=== PATIENT | female | born 1985 | race Caucasian/White ===

== ENCOUNTER 2020-06-30 09:22 | Emergency (ER) | payer SELFPAY ==
--- NOTE | 2020-06-30 09:25 | ED.GENADULT ---
HPI - General Adult General Chief complaint: Skin/Abscess/Foreign Body Stated complaint: Left side facial swelling Time Seen by Provider: 06/30/20 09:36 Source: patient and RN notes reviewed Mode of arrival: ambulatory Limitations: no limitations History of Present Illness HPI narrative: 34-year-old female presents with concern for facial redness, swelling. Reports 1 week ago she noticed a pimple near her left nostril, reports that it drained a small amount of pus, got smaller. Reports it started getting larger again last night, she woke up today with redness, hardness, facial swelling, tenderness. She denies fever, general malaise. She denies vision changes, headache, foul taste or smell. MD complaint: Facial swelling Related Data Allergies Allergy/AdvReac Type Severity Reaction Status Date / Time No Known Allergies Allergy Verified 06/30/20 09:35 Review of Systems Review of Systems: Narrative: CONSTITUTIONAL: Denies malaise, chills, sweats, or fever. EYES: Denies visual changes, redness, or discharge. ENT: Denies rhinorrhea, congestion, sinus pain, otalgia or sore throat. CARDIOVASCULAR: Denies chest pain, palpitations, or edema. RESPIRATORY: Denies cough or dyspnea. GASTROINTESTINAL: Denies abdominal pain, nausea, vomiting SKIN: Reports facial redness, swelling, pimple MUSCULOSKELETAL: Denies myalgia. NEUROLOGIC: Denies numbness, weakness, or headache. All systems reviewed & are unremarkable except as noted in HPI and below PMFSH Comments At time of signature, agree with nursing past medical, surgical, social and family history. There is no relevant family history pertinent to the presenting complaint Exam Narrative: Exam Narrative: GENERAL: Well-appearing, well-nourished, and in no acute distress. HEAD: Normocephalic, atraumatic. EYES: PERRLA, conjunctivae clear, and EOMI. ENT: Nares clear, turbinates pink, no rhinorrhea or epistaxis. Mucous membranes moist. NECK: Supple. No lymphadenopathy. No jugular venous distension. Carotids were easily palpable bilaterally. CHEST: No respiratory distress. No bony deformities, no asymmetry. Speaks in full sentences. HEART: Regular rate and rhythm. SKIN: Warm, dry. No papule with yellow crusted scab noted to the left side of the nostril surrounded by 3 cm of erythema, induration, left cheek edema and mild erythema. NEURO: Alert and oriented x3. No focal deficits. PSYCH: Normal mood and affect Course Course Emergency Course: Discussed with patient limited diagnostic capability at [facility], discussed facial cellulitis and possible need for IV antibiotics, discussed transfer to the emergency room. Patient chooses to not be transferred to the emergency room at this time, understands risks. Patient understands reasons to go to the emergency room symptoms worsen or do not improve. Patient is aware of diagnosis, understands and agrees to treatment plan. Anticipatory guidance given. Patient agrees to follow-up as directed and is aware of reasons to seek care at the emergency department. Portions of this record may have been created with voice recognition software Vital Signs Vital signs: Vital Signs Temperature 98.7 F 06/30/20 09:28 Pulse Rate 94 06/30/20 09:28 Respiratory Rate 16 06/30/20 09:28 Blood Pressure 114/71 06/30/20 09:28 Pulse Oximetry 98 06/30/20 09:28 Temperature 98.7 F 06/30/20 09:28 Pulse Rate 94 06/30/20 09:28 Respiratory Rate 16 06/30/20 09:28 Blood Pressure 114/71 06/30/20 09:28 Pulse Oximetry 98 06/30/20 09:28 Reviewed. Medical Decision Making MDM Narrative Medical decision making narrative: Exam findings show no acute concerns or changes; patient is non-toxic appearing and is in no distress. Patient is appropriate for outpatient treatment and follow-up. Vital Signs Vital Signs: Vital Signs Temperature 98.7 F 06/30/20 09:28 Pulse Rate 94 06/30/20 09:28 Respiratory Rate 16 06/30/20 09:28 Blood Pressure
[2020-06-30 09:28] VITALS: BP 114/71; PULSE 94; RESP 16; TEMP 37.1; O2SAT 98
[2020-06-30] MEDS: cefTRIAXone 250 MG VIAL 1000 MG IM (10:01)
[2020-06-30] MEDS: LIDOCAINE HCL 1% LOCAL INJ 20 ML VIAL INFILTRATE (10:02)
== END 2020-06-30 10:20 | disposition home or self-care (01) ==
PROVIDERS: Emergency Provider Nurse Practitioner
DX: L03.211 Cellulitis of face (principal)
CPT/HCPCS: 96372; 99213; G0463; J0696

== ENCOUNTER 2022-01-21 15:18 | Emergency (ER) | payer SELFPAY ==
--- NOTE | 2022-01-21 15:22 | ED.DENTAL ---
HPI - Dental/Oral General Chief complaint: Dental/Oral Stated complaint: Tooth pain and swollen jaw Time Seen by Provider: 01/21/22 15:22 Source: patient and RN notes reviewed History of Present Illness HPI Narrative: Patient is a 36-year-old female who presents the urgent care with complaints of right upper dental pain and swollen jaw. Patient states that started 3 days ago and she took 1 Pen-Vee K last night. Patient states that the swelling has improved since that 1 dose. States that was an old medication of her boyfriends. Denies of any fever, nausea or vomiting. Patient is also been taking ibuprofen as needed for pain. No other acute complaints. No acute distress noted. Patient aware of the plan of care. Some parts of this dictation were generated by voice recognition software and may contain typographical and/or grammatical inaccuracies. Related Data Allergies Allergy/AdvReac Type Severity Reaction Status Date / Time No Known Allergies Allergy Verified 01/21/22 15:28 Review of Systems Review of Systems: CONSTITUTIONAL: Denies fever, chills, or sweats. EYES: Denies visual changes, redness, or discharge. ENT: Denies rhinorrhea, congestion, sore throat, or otalgia. Reports of right upper dental pain and facial swelling CARDIOVASCULAR: Denies chest pain, palpitations, or edema. RESPIRATORY: Denies cough or dyspnea. GASTROINTESTINAL: Denies abdominal pain, nausea, vomiting, or diarrhea. GENITOURINARY: Denies dysuria or hematuria. SKIN: Denies rash or itching. MUSCULOSKELETAL: Denies back pain, joint pain, or myalgia. NEUROLOGIC: Denies headache, numbness, or weakness. All other systems reviewed are negative, except as documented in HPI. PMFSH Comments At the time of my signature, I reviewed and agree with the nursing past medical, surgical, social, and family history. There is no relevant family history pertinent to the patient complaint. Exam Narrative: GENERAL: This is a well-nourished, well-developed patient, in no apparent distress. HEAD: normocephalic, atraumatic. EYES: PERRL. Sclera clear/white. Vision is grossly intact. EARS: External ears normal, auditory canals clear and without drainage, TMs normal without perforation. Hearing grossly intact. NOSE: External nose normal with no obvious nasal discharge, nares without redness, no rhinorrhea. THROAT: Mucous membranes moist, posterior pharynx clear. DENTAL: Notable carious lesion to the buccal cusp of tooth #1 without surrounding erythema. NECK: Neck supple, non-tender without lymphadenopathy SKIN: warm, intact with no suspicious lesions or rash, good texture and turgor. NEURO: awake, alert, and oriented to person, place and time. There were no obvious focal neurologic abnormalities. EXTREMITIES: No clubbing, cyanosis, or edema. Course Course Level of Care: Express Care Visit Vital Signs Vital signs: Vital Signs Temperature 97.4 F L 01/21/22 15:23 Pulse Rate 92 01/21/22 15:23 Respiratory Rate 16 01/21/22 15:23 Blood Pressure 137/91 H 01/21/22 15:23 Pulse Oximetry 100 01/21/22 15:23 Oxygen Delivery Room Air 01/21/22 15:23 Temperature 97.4 F L 01/21/22 15:23 Pulse Rate 92 01/21/22 15:23 Respiratory Rate 16 01/21/22 15:23 Blood Pressure 137/91 H 01/21/22 15:23 Pulse Oximetry 100 01/21/22 15:23 Oxygen Delivery Room Air 01/21/22 15:23 Reviewed-patient is informed that they may have pre-hypertension or hypertension based on a blood pressure reading in the department. I recommend the patient call the primary care provider listed on their discharge instructions or a physician of their choice this week to arrange follow-up for further evaluation of possible pre-hypertension or hypertension. MDM - Dental/Oral MDM Narrative Medical decision making narrative: Advised patient to complete the oral antibiotic regimen as prescribed. Be sure to eat and drink with the medication. Use the ibuprofen and Tylenol as needed for pain or
[2022-01-21 15:23] VITALS: BP 137/91; PULSE 92; RESP 16; TEMP 36.3; O2SAT 100
== END 2022-01-21 15:40 | disposition home or self-care (01) ==
PROVIDERS: Emergency Provider Nurse Practitioner Family
DX: K02.9 Dental caries, unspecified (principal); K04.7 Periapical abscess without sinus
CPT/HCPCS: 99213; G0463

== ENCOUNTER 2022-06-05 19:12 | Emergency (ER) | payer SELFPAY ==
[2022-06-05 19:17] VITALS: BP 128/82; PULSE 72; RESP 16; TEMP 37; O2SAT 100
--- NOTE | 2022-06-05 20:34 | ED.SKABFB ---
HPI - Skin/Abscess/Foreign Bdy General Chief complaint: Skin/Abscess/Foreign Body Stated complaint: Skin Sore/Left Leg Time Seen by Provider: 06/05/22 19:40 Source: patient, RN notes reviewed and old records reviewed Mode of arrival: ambulatory Limitations: no limitations History of Present Illness HPI narrative: 36 year old female accompanied by rufus presents to express care with abscess to the posterior upper left upper thigh region for approximately a week which has progressively became more painful and today started draining bloody pustular material. Patient states she thought that it was initially a pimple and she squeezed it and then area has become incresingly red with center of wound darkened and painful then drained today. Patient states she recently had stayed at a [place] in [place] and wonders if it was initially a spider bite. Patient reports that she has been applying warm compresses and has taken some Tylenol and Ibuprofen for her discomfort, no known fevers. MD complaint: abscess/boil Onset (ago): week(s) (1) Tetanus up to date: no Location: LLE (upper left thigh) Severity: severe Severity scale (1-10): 8 Treatments prior to arrival: other (warm compresses) Related Data Allergies Allergy/AdvReac Type Severity Reaction Status Date / Time No Known Allergies Allergy Verified 01/21/22 15:28 Review of Systems Review of Systems: CONSTITUTIONAL: Denies fever, chills, or sweats. CARDIOVASCULAR: Denies chest pain, palpitations, or edema. RESPIRATORY: Denies cough or dyspnea. GASTROINTESTINAL: Denies abdominal pain, nausea, vomiting SKIN: Reports redness, warmth with pain to posterior left upper thigh with center fluctuant area with dark tissue with purulent bloody drainage with surrounding redness.and swelling.Some firmness of tissue surrounding center. MUSCULOSKELETAL: Denies myalgia. NEUROLOGIC: Denies headache, numbness All systems reviewed & are unremarkable except as noted in HPI and below PMFSH Social History Social History (Updated 06/08/22 @ 20:14 by Griselda Mccormick NP) Smoking status: Current every day smoker Tobacco type: cigarettes Alcohol intake: current Alcohol use details: social Substance use type: does not use Gender identity (if verbalized by the patient): Female Comments At time of signature, agree with nursing past medical, surgical, social and family history. There is no relevant family history pertinent to the presenting complaint Exam Narrative: GENERAL: Well-appearing, well-nourished, and in no acute distress. HEAD: Normocephalic, atraumatic. EYES: PERRLA and EOMI. ENT: Nares clear, no rhinorrhea or epistaxis. Mucous membranes moist. NECK: Supple. CHEST: Clear to auscultation. No respiratory distress. HEART: Regular rate and rhythm. No murmur heard. Normal peripheral pulses. ABDOMEN: Soft, nontender, nondistended, normal active bowel sounds. EXTREMITIES: Normal range of motion. No edema. SKIN: Warm, dry. Posterior left upper thigh has center fluctuant area of 1.5cm diameter with darkened tissue with purulent bloody drainage with surrounding 3cm total area of induration.Total area of redness and warmth noted to be a total 22cm X 17Cm in size with area marked with skin marker. Cultures obtained of wound drainage and sent for analysis. Area is painful to palpation. NEURO: No focal deficits. Alert and oriented x3. Course Course Emergency Course: Patient is aware of diagnosis, understands and agrees to treatment plan. Anticipatory guidance given. Patient agrees to follow-up as directed and is aware of reasons to seek care at the emergency department. Portions of this record may have been created with voice recognition software Level of Care: Express Care Visit Vital Signs Vital signs: Vital Signs Temperature 37.0 C 06/05/22 19:17 Pulse Rate 72 06/05/22 19:17 Respiratory Rate 16 06/05/22 19:17 Blood Pressure 128/82 06/05/22 19:17 Pulse Oximetry 100
[2022-06-05] MEDS: TETANUS,DIPHTHERIA,AC PERTUSSIS ADULT (0.5 ML) BOOSTRIX IM (20:42)
== END 2022-06-05 20:53 | disposition home or self-care (01) ==
PROVIDERS: Emergency Provider Registered Nurse; PCP Family Medicine
DX: L02.416 Cutaneous abscess of left lower limb (principal); Z23 Encounter for immunization; F17.210 Nicotine dependence, cigarettes, uncomplicated
CPT/HCPCS: 10060; 87070; 87147; 87181; 87186; 87205; 90471; 90715; 99213; G0463

== ENCOUNTER 2024-04-17 13:38 | Emergency (ER) | payer SELFPAY ==
[2024-04-17 13:48] VITALS: BP 126/90; PULSE 109; RESP 16; TEMP 36.6; O2SAT 99
--- NOTE | 2024-04-17 14:08 | ED.SKABFB ---
HPI - Skin/Abscess/Foreign Bdy General Chief complaint: Skin/Abscess/Foreign Body Stated complaint: Rash Time Seen by Provider: 04/17/24 14:09 Source: patient Mode of arrival: ambulatory Limitations: no limitations History of Present Illness HPI narrative: [age] year old female presented of a rash to the mouth area for about 2 weeks. She states it started on the side of chin and slowly progressed to the right side. No lesions to the lips or inside the mouth. Describes the rash as red bumps, denies itching or drainage to the sites. Denies any other skin concerns. Denies lip, tongue, or throat swelling. Denies changes to soap, detergent, lotion, or any other exposures. No one else in the house or any contacts with similar symptoms. Related Data Allergies Allergy/AdvReac Type Severity Reaction Status Date / Time No Known Allergies Allergy Verified 04/17/24 14:08 Review of Systems Review of Systems: CONSTITUTIONAL: Denies body aches, fever, chills, or sweats. EYES: Denies visual changes, redness, or discharge. ENT: Denies rhinorrhea, congestion CARDIOVASCULAR: Denies chest pain, palpitations, or edema. RESPIRATORY: Denies cough or dyspnea. GASTROINTESTINAL: Denies abdominal pain, nausea, vomiting, or diarrhea. SKIN: per HPI MUSCULOSKELETAL: Denies back pain, joint pain, or myalgia. NEUROLOGIC: Denies headache, numbness, tingling, or weakness. [facility] Family History Family History Mother Hypertension Social History Social History Smoking status: Current every day smoker Tobacco type: cigarettes Alcohol intake: current Alcohol use details: social Substance use: never Substance use type: does not use Lack of Transportation: No Lack of Food: Never True Current Housing: I Have Housing Concerned About Future Housing: No Difficulty Paying Gas/Electric Bills: No Difficulty Paying for Meds: No Currently Unemployed: No Education: Associate Degree Difficulty w/ Childcare or Family Care: No Living arrangements: with family Additional living arrangements comments: Fiance and son Occupation/Education: occupation Gender identity (if verbalized by the patient): Female Sexual Orientation (if Verbalized by the Patient): Straight or Heterosexual Agree to blood products: Yes Comments At time of signature, I have reviewed and agree with nursing past medical, surgical, social and family history unless otherwise noted. Please see nursing chart for further information. There is no relevant family history pertinent to the presenting complaint Exam Narrative: GENERAL: Well-appearing HEAD: Normocephalic, atraumatic. EYES: conjunctivae clear, and EOMI. ENT: Mucous membranes moist. Oropharynx without edema, erythema or lesions. Lips without lesions. NECK: Supple. No lymphadenopathy CHEST: Clear to auscultation. HEART: Regular rate and rhythm. SKIN: Warm, dry. Scattered erythematous pustules noted around the mouth/ chin no drainage nontender NEURO: Alert and oriented x3. Course Course Emergency Course: Patient is aware of diagnosis, understands and agrees to treatment plan. Anticipatory guidance given. Patient agrees to follow-up as directed and is aware of reasons to seek care at the emergency department. Portions of this record may have been created with voice recognition software Level of Care: Express Care Visit Vital Signs Vital signs: Vital Signs Temperature 97.9 F 04/17/24 13:48 Pulse Rate 109 H 04/17/24 13:48 Respiratory Rate 16 04/17/24 13:48 Blood Pressure 126/90 04/17/24 13:48 Pulse Oximetry 99 04/17/24 13:48 Temperature 97.9 F 04/17/24 13:48 Pulse Rate 109 H 04/17/24 13:48 Respiratory Rate 16 04/17/24 13:48 Blood Pressure 126/90 04/17/24 13:48 Pulse Oximetry 99 04/17/24 13:48 Reviewed MDM - Skin/Abscess/Foreign Bdy MDM Narrative Medical decision making narrative: Discussed physical exam findings most c/w folliculitis. Advised supportive measures and signs/symptoms to go to the ER. Pt is appropriate for outpt treatment and f/u. Differential Diagnosis Differential diagnosis: Likely abscess of skin or subcutaneous tissue, viral exanthem, dermatophytosis, urticaria, herpes zoster, cellulitis, eczema, insect bites, impetigo and contact dermatitis Discharge Plan Discharge Clinical Impression: Folliculitis Patient Disposition: Home, Self-Care Condition: Stable Instructions: Antibiotic Form, Folliculitis (ED) Additional Instructions: Keep the area clean and dry - cleanse with warm water and mild soap and allow to fully dry. Apply ointment as directed Take antibiotic as directed Avoid shaving or waxing Watch for worsening symptoms including pain, redness, swelling, streaking, pus/drainage, fever. Go to the ER with any of these symptoms or concerns. Follow up with primary care provider in 1-2 weeks as needed. Prescriptions: New mupirocin 2 % ointment 1 applic topical BID 7 Days Qty: 22 0RF amoxicillin-pot clavulanate 875-125 mg tablet 1 tablet PO Q12H 7 Days Qty: 14 0RF Follow-up/Referrals: PHYSICIAN,DIRECTOR DATA ANALYTICS [Primary Care Provider] -
== END 2024-04-17 14:31 | disposition home or self-care (01) ==
PROVIDERS: Emergency Provider Nurse Practitioner Family
DX: L73.9 Follicular disorder, unspecified (principal); F17.210 Nicotine dependence, cigarettes, uncomplicated
CPT/HCPCS: 99213; G0463